=== PATIENT | female | born 1965 | race Two or more races ===

== ENCOUNTER 2017-01-09 01:13 | Emergency (ER) | payer MEDICAID ==
[~2017-01-09] VITALS: Ht 167.6 cm; Wt 68.0 kg
[2017-01-09 03:55] VITALS: BP 138/92
[2017-01-09] MEDS ORDERED: TETANUS-DIPTH-ACEL PERTUSSIS 0.5ML SYRG IM ONE (04:15)
[2017-01-09] MEDS ORDERED: LIDOCAINE 1% HCL (LOCAL ANESTH.) INJ 20ML MDV IN ONE (04:15)
[2017-01-09] MEDS ORDERED: BACITRACIN TOP OINT 1 UD PKG TOP ONE (04:15)
== END 2017-01-09 04:37 | disposition home or self-care (01) ==
LOC: ER 01:13
DX: S61.231A Puncture wound without foreign body of left index finger without damage to nail, initial encounter (principal); S61.232A Puncture wound without foreign body of right middle finger without damage to nail, initial encounter; F17.210 Nicotine dependence, cigarettes, uncomplicated; M19.90 Unspecified osteoarthritis, unspecified site; Z88.6 Allergy status to analgesic agent; Z88.8 Allergy status to other drugs, medicaments and biological substances; W22.8XXA Striking against or struck by other objects, initial encounter; Y93.89 Activity, other specified; Y92.89 Other specified places as the place of occurrence of the external cause; Y99.8 Other external cause status
CPT/HCPCS: 12002; 90471; 90715; 99283; J2001

== ENCOUNTER 2020-10-28 04:40 | Emergency (ER) | payer OTHER, MEDICAID ==
[~2020-10-28] VITALS: Ht 167.6 cm; Wt 77.1 kg
[2020-10-28 07:54] VITALS: BP 127/88
[2020-10-28] MEDS ORDERED: methylPREDNISolone SOD SUCC 125 MG/2 ML VL IM ONE (08:00)
== END 2020-10-28 08:28 | disposition home or self-care (01) ==
LOC: ER 04:40
DX: M54.5 Low back pain (principal); G89.29 Other chronic pain; M25.552 Pain in left hip; F17.210 Nicotine dependence, cigarettes, uncomplicated; Z88.6 Allergy status to analgesic agent; Z88.5 Allergy status to narcotic agent
CPT/HCPCS: 72100; 73502; 96372; 99284; J2930